=== PATIENT | female | born 1940 | race African-American/Black ===

== ENCOUNTER → 2016-12-20 | Outpatient (CLI) | payer MEDICARE ==
[~2016-12-20] MED LIST: AMLO10TA2 PO; ASPI81CH CHEW; LISI40TA PO; MULTTAB67 PO; STOO100C PO
[2016-12-20 15:15] LABS: BLOOD, URINE NEG (NEG); GLUCOSE,URINE NEG (NEG); HYALINE CAST, URINE 4 /lpf (RARE); KETONE, URINE NEG (NEG); NITRITE,URINE NEG (NEG); SQUAMOUS EPITHELIAL CELL URINE <1 /hpf (0-5); URINE COLOR YELLOW (YELLW/STRAW)
[2016-12-20 15:27] LABS: ALT (GPT) 40 U/L (10-53); ANION GAP 7 MEQ/L (5-15); AST (GOT) 33 U/L (15-37); BICARBONATE 27.9 MEQ/L (21.0-32.0); BLOOD UREA NITROGEN 18 MG/DL (7-18); CHLORIDE 104 MEQ/L (98-107); GLOMERULAR FILTRATION RATE 56 ML/MIN (>89); GLUCOSE,FASTING 83 MG/DL (74-99); POTASSIUM 4.2 MEQ/L (3.5-5.1); SODIUM (NA) 139 MEQ/L (136-145)
[2016-12-20 15:29] LABS: ALKALINE PHOSPHATASE 196 U/L (45-117); APTT (PATIENT) 26.6 SEC (24.3-30.1); PROTHROMBIN TIME - PATIENT 10.5 SEC (9.8-11.6); TOTAL BILIRUBIN ADULT 0.3 MG/DL (0.2-1.0)
[2016-12-20 16:51] LABS: HEMATOCRIT 35.2 % (35.0-46.0); MEAN CELL VOLUME 73.6 FL (80.0-100.0); MEAN CORPUSCULAR HEMOGLOBIN 22.6 PG (27.0-34.0); MEAN CORPUSCULAR HGB CONC 30.7 % (32.0-36.0); PLATELET COUNT 336 TH/MM3 (150-450); RED BLOOD COUNT 4.78 MIL/MM3 (4.00-5.30); RED CELL DISTRIBUTION WIDTH 16.2 % (11.6-17.2); REVIEW FLAG FINAL; WHITE BLOOD COUNT 10.8 TH/MM3 (4.0-11.0)
== END ==
LOC: CLAB 14:37
PROVIDERS: ATTEND Family Medicine
DX: Z01.810 Encounter for preprocedural cardiovascular examination (principal); Z01.818 Encounter for other preprocedural examination
CPT/HCPCS: 36415; 80053; 81001; 85027; 85610; 85730; 86850; 86900; 86901

== ENCOUNTER → 2016-12-24 | Outpatient (CLI) | payer MEDICARE ==
[2016-12-24 11:12] LABS: ANION GAP 10 MEQ/L (5-15); AST (GOT) 43 U/L (15-37); BICARBONATE 25.7 MEQ/L (21.0-32.0); BLOOD UREA NITROGEN 13 MG/DL (7-18); CHLORIDE 101 MEQ/L (98-107); GAMMA GT 561 U/L (5-55); GLOMERULAR FILTRATION RATE 60 ML/MIN (>89); GLUCOSE,FASTING 93 MG/DL (74-99); POTASSIUM 4.2 MEQ/L (3.5-5.1); SODIUM (NA) 137 MEQ/L (136-145)
[2016-12-24 11:21] LABS: ALKALINE PHOSPHATASE 204 U/L (45-117); ALT (GPT) 45 U/L (10-53); TOTAL BILIRUBIN ADULT 0.3 MG/DL (0.2-1.0)
== END ==
LOC: CLAB 10:21
PROVIDERS: ATTEND Family Medicine
DX: R74.8 Abnormal levels of other serum enzymes (principal); I49.9 Cardiac arrhythmia, unspecified
CPT/HCPCS: 36415; 80053; 82977; 84443

== ENCOUNTER → 2017-01-02 | Outpatient (CLI) | payer MEDICARE ==
[2017-01-02 14:19] LABS: ANION GAP 7 MEQ/L (5-15); AST (GOT) 55 U/L (15-37); BICARBONATE 24.2 MEQ/L (21.0-32.0); BLOOD UREA NITROGEN 30 MG/DL (7-18); CHLORIDE 108 MEQ/L (98-107); GAMMA GT 593 U/L (5-55); GLOMERULAR FILTRATION RATE 60 ML/MIN (>89); GLUCOSE,FASTING 84 MG/DL (74-99); POTASSIUM 4.3 MEQ/L (3.5-5.1); SODIUM (NA) 139 MEQ/L (136-145)
[2017-01-02 14:21] LABS: ALT (GPT) 56 U/L (10-53)
[2017-01-02 14:23] LABS: ALKALINE PHOSPHATASE 213 U/L (45-117); TOTAL BILIRUBIN ADULT 0.3 MG/DL (0.2-1.0)
== END ==
LOC: CLAB 13:20
PROVIDERS: ATTEND Family Medicine
DX: R74.8 Abnormal levels of other serum enzymes (principal)
CPT/HCPCS: 36415; 80053; 82977; 83520

== ENCOUNTER → 2017-04-14 | Outpatient (CLI) | payer MEDICARE ==
[~2017-04-14] MED LIST changes: +AMOX875T2 PO; +ASPI-516 CHEW; -ASPI81CH CHEW; +DOCU1CAP66 PO; -STOO100C PO
[2017-04-14 08:56] LABS: HEMATOCRIT 29.8 % (35.0-46.0); MEAN CELL VOLUME 72.1 FL (80.0-100.0); MEAN CORPUSCULAR HEMOGLOBIN 22.6 PG (27.0-34.0); MEAN CORPUSCULAR HGB CONC 31.4 % (32.0-36.0); PLATELET COUNT 281 TH/MM3 (150-450); RED BLOOD COUNT 4.13 MIL/MM3 (4.00-5.30); REVIEW FLAG FINAL
[2017-04-14 09:36] LABS: ANION GAP 7 MEQ/L (5-15); AST (GOT) 23 U/L (15-37); BLOOD UREA NITROGEN 18 MG/DL (7-18); CHLORIDE 108 MEQ/L (98-107); GLOMERULAR FILTRATION RATE 64 ML/MIN (>89); GLUCOSE,FASTING 89 MG/DL (74-99); POTASSIUM 4.4 MEQ/L (3.5-5.1); SODIUM (NA) 140 MEQ/L (136-145)
[2017-04-14 09:37] LABS: ALT (GPT) 21 U/L (10-53)
[2017-04-14 09:39] LABS: ALKALINE PHOSPHATASE 134 U/L (45-117); TOTAL BILIRUBIN ADULT 0.3 MG/DL (0.2-1.0)
== END ==
LOC: CLAB 08:30
PROVIDERS: ATTEND Family Medicine
DX: I10 Essential (primary) hypertension (principal); R74.8 Abnormal levels of other serum enzymes
CPT/HCPCS: 36415; 80053; 84080; 85027

== ENCOUNTER 2017-05-22 16:49 | Emergency (ER) | payer MEDICARE ==
[~2017-05-22] VITALS: Ht 152.4 cm; Wt 70.0 kg
[~2017-05-22 16:49] MED LIST changes: -AMOX875T2 PO
[2017-05-22 16:57] VITALS: BP 217/98; PULSE 98; RESP 16; O2SAT 99
[2017-05-22 18:41] VITALS: BP_SYST 203; BP_SYST 205; BP_DIAS 95; PULSE 99; RESP 16; O2SAT 100
[2017-05-22 19:26] VITALS: TEMP 98.8
--- NOTE | 2017-05-22 19:26 | PD ---
HPI Chief Complaint: Musculoskeletal Complaint Time Seen by Provider: 18:43 Travel History International Travel<30 days: No Contact w/Intl Traveler<30days: No Traveled to known affect area: No History of Present Illness HPI 76-year-old female complains of pain in the left arm. She lifted a zamora 2 days prior and shortly thereafter felt the pain in the region of the left trapezoids T the region of the left humerus. The day after that she noticed some ecchymosis about the left biceps. She has had some pain since which is worse with palpation. She denies numbness tingling weakness. Onset sudden timing constant and symptoms are gradually decreasing in severity. PFSH Past Medical History Anemia: Yes Arthritis: Yes (RHUMATOID ) Anxiety: Yes Depression: Yes Heart Rhythm Problems: Yes Cancer: No Cardiac Catheterization: Yes (NO STENTS PLACED) Cardiovascular Problems: Yes (HEART MURMUR, ENLARGED HEART) High Cholesterol: Yes (DENIES) Cerebrovascular Accident: No Diabetes: No Diminished Hearing: No Endocrine: No Gastrointestinal Disorders: Yes Genitourinary: Yes Hypertension: Yes Immune Disorder: No Musculoskeletal: Yes (ARTHRITIS) Neurologic: No Psychiatric: Yes Reproductive: Yes Respiratory: No Immunizations Current: Yes Myocardial Infarction: No Menopausal: Yes Past Surgical History Abdominal Surgery: Yes (FOR INFECTION 2 YEARS AGO,AMANDA,APPENDECTOMY, FOREIGN OBJECT REMOVAL 5YRS A) Appendectomy: Yes (1983) Cholecystectomy: Yes (1978) Endocrine Surgery: Yes Eye Surgery: Yes (left eye cataract removal) Gynecologic Surgery: Yes (HYSTECETOMY) Hysterectomy: Yes (1979) Oral Surgery: Yes (tonsillectomy) Tonsillectomy: Yes (AGE 27) Other Surgery: Yes Social History Alcohol Use: No Tobacco Use: No Substance Use: No Allergies-Medications (Allergen,Severity, Reaction): Coded Allergies: butorphanol (Verified Allergy, Severe, RASH, 05/13/17) codeine (Verified Allergy, Severe, ITCH,SICK STOMACH, 05/13/17) diatrizoate meglumine (Verified Allergy, Severe, Hives, 05/13/17) Hives and severe itching to throat despite premedication on April 16, 2007. gadobenic acid (Verified Allergy, Severe, Hives, 05/13/17) Hives and severe itching to throat despite premedication on April 16, 2007. gadodiamide (Verified Allergy, Severe, Hives, 05/13/17) Hives and severe itching to throat despite premedication on April 16, 2007. gadoteridol (Verified Allergy, Severe, Hives, 05/13/17) Hives and severe itching to throat despite premedication on April 16, 2007. gluten (Verified Allergy, Severe, BLOODY DIARRHEA, 05/13/17) iodixanol (Verified Allergy, Severe, Hives, 05/13/17) Hives and severe itching to throat despite premedication on April 16, 2007. iohexol (Verified Allergy, Severe, "I WENT BLIND FOR A SHORT TIME", ) Hives and severe itching to throat despite premedication on April 16, 2007. ketorolac (Verified Allergy, Severe, Hives, 05/13/17) nalbuphine (Verified Allergy, Severe, RASH, 05/13/17) wheat (Verified Allergy, Intermediate, BLOODY DIARRHEA, 05/13/17) benzonatate (Verified Adverse Reaction, Intermediate, palpitations, ) Reported Meds & Prescriptions Reported Meds & Active Scripts Active Lisinopril 40 Mg Tab 40 Mg PO DAILY Amlodipine (Amlodipine Besylate) 10 Mg Tab 10 Mg PO DAILY Reported Stool Softener (Docusate Sodium) 100 Mg Cap 100 Mg PO Multiple Vitamin 1 Tab 1 Tab PO DAILY Aspirin 81 Mg Chew 81 Mg CHEW DAILY Review of Systems Except as stated in HPI: all other systems reviewed are Neg General / Constitutional: No: Fever Physical Exam Narrative GENERAL: 76-year-old female pleasant well-nourished well-developed SKIN: Warm and dry. Ecchymosis about the left biceps approximately 7 cm in greatest diameter with minimal induration and no warmth of her generalized swelling to suggest a DVT. HEAD: Atraumatic. Normocephalic. EYES: Pupils equal and round. No scleral icterus. No injection or drainage. ENT: No nasal bleeding or discharge. Mucous membranes pink and moist. NECK: Trachea midline. No JVD. CARDIOVASCULAR: Regular rate and rhythm. 2+ radial artery pulse bilaterally. RESPIRATORY: No accessory muscle use. Clear to auscultation. Breath sounds equal bilaterally. GASTROINTESTINAL: Abdomen soft, non-tender, nondistended. Hepatic and splenic margins not palpable. MUSCULOSKELETAL: Extremities without clubbing, cyanosis, or edema. No obvious deformities. NEUROLOGICAL: Awake and alert. No obvious cranial nerve deficits. Motor grossly within normal limits. Five out of 5 muscle strength in the arms and legs. Normal speech. Median radial and ulnar sensation intact. The handgrip is normal bilaterally. Flexion extension at the elbow is equal bilaterally. The patient rates her arms to about the 90 on both sides however reports this is chronic due to her rheumatoid disease. Data Data Last Documented VS Vital Signs Date Time Temp Pulse Resp B/P (MAP) Pulse Ox O2 Delivery O2 Flow Rate FiO2 05/22/17 18:41 99 16 203/95 (131) 100 Room Air 196/87 Vital Signs Date Time Temp Pulse Resp B/P (MAP) Pulse Ox O2 Delivery O2 Flow Rate FiO2 05/22/17 18:41 99 16 203/95 (131) 100 Room Air 05/22/17 16:57 98 16 217/98 (137) 99 MDM Medical Decision Making Medical Screen Exam Complete: Yes Emergency Medical Condition: Yes Medical Record Reviewed: Yes Differential Diagnosis Ecchymosis, muscle tendon rupture, contusion Narrative Course The exam is reassuring and I think is very likely the patient has any significant musculoskeletal injury. Neuro vasculature is normal. Blood pressure is 197/86 which although quite elevated the patient has no signs of end organ injury and will be discharged home with a plan to discontinue NSAIDs and try Tylenol, ice, elevation and compression as needed. Diagnosis Primary Impression: Ecchymosis of left eye Qualified Codes: S05.12XA - Contusion of eyeball and orbital tissues, left eye , initial encounter Additional Impression: Hypertension Qualified Codes: I10 - Essential (primary) hypertension Med/Other Pt SpecificInfo: No Change to Meds Disposition: 01 DISCHARGE HOME Condition: Stable Flo Carver MD May 22, 2017 19:26
== END 2017-05-22 19:37 | disposition home or self-care (01) ==
LOC: NEPD 16:49
DX: S05.12XA Contusion of eyeball and orbital tissues, left eye, initial encounter (principal); I10 Essential (primary) hypertension; M79.602 Pain in left arm; M19.90 Unspecified osteoarthritis, unspecified site; F32.9 Major depressive disorder, single episode, unspecified; X50.0XXA Overexertion from strenuous movement or load, initial encounter
CPT/HCPCS: 99282